=== PATIENT | male | born 1990 | race African-American/Black ===

== ENCOUNTER 2019-03-24 13:42 | Emergency (ER) | payer OTHER ==
[2019-03-24] MEDS ORDERED: KETOROLAC 30 MG/ML INJ ONE (14:14)
--- NOTE | 2019-03-24 14:33 | RAD REPORT ---
EXAM DESCRIPTION: RAD - Ankle Left 3 View - 03/24/2019 2:26 pm CLINICAL HISTORY: PAIN COMPARISON: No comparisons FINDINGS: No acute fracture or dislocation seen.
--- NOTE | 2019-03-24 14:40 | RAD REPORT ---
EXAM DESCRIPTION: CT - Spine Lumbar Wo Con - 03/24/2019 2:33 pm CLINICAL HISTORY: Radiculopathy. LOWER BACK PAIN COMPARISON: No comparisons TECHNIQUE: Axial noncontrast CT imaging of the lumbar spine was performed with coronal and sagittal re-formatted images. All CT scans are performed using dose optimization technique as appropriate and may include automated exposure control or mA/KV adjustment according to patient size. FINDINGS: No acute lumbar spine fracture seen. No aggressive marrow pattern or malalignment. Paraspinal tissues are normal in thickness. No paraspinal abscess or hematoma seen. Intervertebral disc disease assessment is inherently limited by CT. Within these limitations, no high -grade canal stenosis suspected. Mild posterior disc bulge is seen lower lumbar levels. IMPRESSION: No acute lumbar spine abnormality detected. Consider MRI follow-up for assessment of disc disease if clinically desired.
[2019-03-24] MEDS ORDERED: CYCLOBENZAPRINE 10 MG TAB ONE (14:53)
[2019-03-24] MEDS ORDERED: HYDROCODONE/APAP 5/325 MG TAB ONE (14:53)
--- NOTE | 2019-03-24 15:42 | EDPHYS ---
Physician Documentation [facility] Name: Margo Currie Age: 28 yrs Sex: Male : 1990 Arrival Date: 03/24/2019 Time: 13:44 Bed 17 Private MD: ED Physician Mil Hernandes HPI: 03/24 15:38 This 28 yrs old Black Male presents to ER via Wheelchair with complaints of Ankle kb Injury, Low Back Pain. 15:39 The patient presents with pain that is acute, and tenderness. The symptoms are located kb in the low back. Onset: The symptoms/episode began/occurred just prior to arrival. The pain does not radiate. Associated signs and symptoms: The patient has no apparent associated signs or symptoms. The problem was sustained from twisting. Modifying factors: The patient symptoms are alleviated by nothing, the patient symptoms are aggravated by any movement. Severity of symptoms: At their worst the symptoms were moderate, in the emergency department the symptoms are unchanged. The patient has not experienced similar symptoms in the past. The patient has not recently seen a physician. Pt was carrying a ladder and a dog ran up behind him so he was startled and twisted his left ankle, causing the ladder to tilt to the right. Pt twisted so the ladder would fall to the left instead and felt a pop in low back.. Historical: - Allergies: 13:48 No Known Allergies; la1 - PMHx: 13:48 None; la1 - Immunization history:: Adult Immunizations up to date. - Social history:: Smoking status: Patient/guardian denies using tobacco. - Ebola Screening: : No symptoms or risks identified at this time. ROS: 15:37 Constitutional: Negative for fever, chills, and weight loss, ENT: Negative for injury, kb pain, and discharge, Neck: Negative for injury, pain, and swelling, Cardiovascular: Negative for chest pain, palpitations, and edema, Respiratory: Negative for shortness of breath, cough, wheezing, and pleuritic chest pain, Abdomen/GI: Negative for abdominal pain, nausea, vomiting, diarrhea, and constipation, : Negative for injury, bleeding, discharge, and swelling, Skin: Negative for injury, rash, and discoloration, Neuro: Negative for headache, weakness, numbness, tingling, and seizure. 15:37 Back: Positive for pain at rest, pain with movement. 15:37 MS/extremity: Positive for injury or acute deformity, pain, tenderness, of the left ankle. Exam: 15:36 Constitutional: This is a well developed, well nourished patient who is awake, alert, kb and in no acute distress. Head/Face: Normocephalic, atraumatic. ENT: Nares patent. No nasal discharge, no septal abnormalities noted. Tympanic membranes are normal and external auditory canals are clear. Oropharynx with no redness, swelling, or masses, exudates, or evidence of obstruction, uvula midline. Mucous membranes moist. Neck: Trachea midline, no thyromegaly or masses palpated, and no cervical lymphadenopathy. Supple, full range of motion without nuchal rigidity, or vertebral point tenderness. No Meningismus. Chest/axilla: Normal chest wall appearance and motion. Nontender with no deformity. No lesions are appreciated. Cardiovascular: Regular rate and rhythm with a normal S1 and S2. No gallops, murmurs, or rubs. Normal PMI, no JVD. No pulse deficits. Respiratory: Lungs have equal breath sounds bilaterally, clear to auscultation and percussion. No rales, rhonchi or wheezes noted. No increased work of breathing, no retractions or nasal flaring. Abdomen/GI: Soft, non-tender, with normal bowel sounds. No distension or tympany. No guarding or rebound. No evidence of tenderness throughout. Skin: Warm, dry with normal turgor. Normal color with no rashes, no lesions, and no evidence of cellulitis. Neuro: Awake and alert, GCS 15, oriented to person, place, time, and situation. Cranial nerves II-XII grossly intact. Motor strength 5/5 in all extremities. Sensory grossly intact. Cerebellar exam normal. Normal gait. 15:36 Back: pain, that is moderate, of the low back area, ROM is painful, with all movement, normal spinal alignment noted. 15:37 Musculoskeletal/extremity: Extremities: grossly normal except: noted in the left ankle: kb pain, swelling, tenderness, ROM: intact in all extremities, Circulation is intact in all extremities. Sensation intact. Weight bearing: can bear weight with assistance only. Vital Signs: 13:48 BP 149 / 112; Pulse 93; Resp 16; Temp 97.4; Pulse Ox 100% on R/A; Weight 79.38 kg; la1 Height 6 ft. 1 in. (185.42 cm); 14:35 BP 134 / 95; Pulse 81; Resp 18; Pulse Ox 99% on R/A; Pain 10/10; em 13:48 Body Mass Index 23.09 (79.38 kg, 185.42 cm) la1 MDM: 13:58 Patient medically screened. kb 15:36 Data reviewed: vital signs, nurses notes. Data interpreted: Pulse oximetry: on room air kb is 99 %. Interpretation: normal. Counseling: I had a detailed discussion with the patient and/or guardian regarding: the historical points, exam findings, and any diagnostic results supporting the discharge/admit diagnosis, radiology results, the need for outpatient follow up, a family practitioner, to return to the emergency department if symptoms worsen or persist or if there are any questions or concerns that arise at home. 03/24 14:06 Order name: Ankle Left 3 View XRAY; Complete Time: 14:36 kb 03/24 14:06 Order name: CT Lumbar Spine Wo Con; Complete Time: 15:02 kb Administered Medications: 14:15 Drug: TORadol 30 mg Route: IM; Site: right deltoid; em 14:35 Follow up: Response: No adverse reaction; Pain is unchanged, physician notified em 14:57 Drug: Flexeril 10 mg Route: PO; em 16:26 Follow up: Response: No adverse reaction; Pain is decreased em 14:57 Drug: [place] 5 mg-325 mg 1 tabs Route: PO; em 16:26 Follow up: Response: No adverse reaction; Pain is decreased; RASS: Alert and Calm (0) em Disposition: 03/25 07:12 Co-signature as Attending Physician, Mil Hernandes MD. ma2 Disposition: 03/24/19 15:41 Discharged to Home. Impression: Sprain of ankle, Low back pain. - Condition is Stable. - Discharge Instructions: Ankle Sprain, [id number], Back Injury Prevention, [id number], Back Pain, Adult, [id number], Back Exercises, [id number]. - Prescriptions for Cyclobenzaprine 10 mg Oral Tablet - take 1 tablet by ORAL route every 8 hours As needed; 21 tablet. Diclofenac Sodium 75 mg Oral Tablet, Delayed Release (E.C.) - take 1 tablet by ORAL route 2 times per day As needed; 30 tablet. - Work release form, Medication Reconciliation Form, Thank You Letter, Antibiotic Education, Prescription Opioid Use form. - Follow up: Emergency Department; When: As needed; Reason: Worsening of condition. Follow up: Private Physician; When: 2 - 3 days; Reason: Recheck today's complaints, Continuance of care, Re-evaluation by your physician. Signatures: Dispatcher [employer] EDNeelam Craig, ABRAHAM-C EMERGENCY DEPARTMENT AIDE-Franki Bahena, SUPERVISOR ROLLER SHOP SUPERVISOR ROLLER SHOP em Marquis Charlton RN RN la1 Mil Hernandes MD MD ma2 Corrections: (The following items were deleted from the chart) 03/24 16:27 15:41 03/24/2019 15:41 Discharged to Home. Impression: Sprain of ankle; Low back pain. em Condition is Stable. Forms are Medication Reconciliation Form, Thank You Letter, Antibiotic Education, Prescription Opioid Use. Follow up: Emergency Department; When: As needed; Reason: Worsening of condition. Follow up: Private Physician; When: 2 - 3 days; Reason: Recheck today's complaints, Continuance of care, Re-evaluation by your physician. kb
--- NOTE | 2019-03-24 15:42 | ER ---
Nurse's Notes [facility] Name: Margo Currie Age: 28 yrs Sex: Male : 1990 Arrival Date: 03/24/2019 Time: 13:44 Bed 17 Private MD: Diagnosis: Sprain of ankle;Low back pain Presentation: 03/24 13:47 Presenting complaint: Patient states: I was carrying a ladder and got startled and lost la1 my footing, I rolled my left ankle then felt something go in my lower back and had to drop the ladder\E\. Transition of care: patient was not received from another setting of care. Onset of symptoms was March 24, 2019. Risk Assessment: Do you want to hurt yourself or someone else? Patient reports no desire to harm self or others. Initial Sepsis Screen: Does the patient meet any 2 criteria? No. Patient's initial sepsis screen is negative. Does the patient have a suspected source of infection? No. Patient's initial sepsis screen is negative. Care prior to arrival: None. 13:47 Method Of Arrival: Wheelchair la1 13:47 Acuity: GEETHA 4 la1 Historical: - Allergies: 13:48 No Known Allergies; la1 - PMHx: 13:48 None; la1 - Immunization history:: Adult Immunizations up to date. - Social history:: Smoking status: Patient/guardian denies using tobacco. - Ebola Screening: : No symptoms or risks identified at this time. Screenin:15 Abuse screen: Denies threats or abuse. Nutritional screening: No deficits noted. em Tuberculosis screening: No symptoms or risk factors identified. Fall Risk None identified. Assessment: 14:10 General: Appears in no apparent distress. uncomfortable, Behavior is calm, cooperative. em Pain: Complains of pain in lumbar area and left lateral malleolus Pain currently is 10 out of 10 on a pain scale. Pain began 2 hours ago. Neuro: Level of Consciousness is awake, alert, obeys commands, Oriented to person, place, time, situation, Appropriate for age Denies paresthesias numbness. Cardiovascular: Capillary refill < 3 seconds Patient's skin is warm and dry. Respiratory: Airway is patent Respiratory effort is even, unlabored, Respiratory pattern is regular, symmetrical. Derm: Skin is intact, is healthy with good turgor, Skin is pink, warm \T\ dry. Musculoskeletal: Capillary refill < 3 seconds, Range of motion: limited in left ankle. 14:10 Reassessment: I agree with assessment completed by Franki Ma LVN . aa5 14:35 Reassessment: Patient appears in no apparent distress at this time. Patient and/or em family updated on plan of care and expected duration. Pain level reassessed. Patient is alert, oriented x 3, equal unlabored respirations, skin warm/dry/pink. reports pain medication did not help, provider notified, new medication orders received. 15:30 Reassessment: Patient appears in no apparent distress at this time. Patient and/or em family updated on plan of care and expected duration. Pain level reassessed. Patient is alert, oriented x 3, equal unlabored respirations, skin warm/dry/pink. 16:27 Reassessment: Patient appears in no apparent distress at this time. Patient and/or em family updated on plan of care and expected duration. Pain level reassessed. Patient is alert, oriented x 3, equal unlabored respirations, skin warm/dry/pink. rates pain 7/10 Patient states feeling better. Vital Signs: 13:48 BP 149 / 112; Pulse 93; Resp 16; Temp 97.4; Pulse Ox 100% on R/A; Weight 79.38 kg; la1 Height 6 ft. 1 in. (185.42 cm); 14:35 BP 134 / 95; Pulse 81; Resp 18; Pulse Ox 99% on R/A; Pain 10/10; em 13:48 Body Mass Index 23.09 (79.38 kg, 185.42 cm) la1 ED Course: 13:44 Patient arrived in ED. as 13:48 Triage completed. la1 13:48 Arm band placed on left wrist. la1 13:58 Neelam Oseguera FNP-C is [facility]. kb 13:58 Mil Hernandes MD is Attending Physician. kb 14:09 Franki Ma LVN is Primary Nurse. em 14:15 Patient has correct armband on for positive identification. Bed in low position. Call em light in reach. Side rails up X2. Pulse ox on. NIBP on. 14:26 Ankle Left 3 View XRAY In Process Unspecified. EDMS 14:34 CT Lumbar Spine Wo Con In Process Unspecified. EDMS 16:25 No provider procedures requiring assistance completed. Patient did not have IV access em during this emergency room visit. Administered Medications: 14:15 Drug: TORadol 30 mg Route: IM; Site: right deltoid; em 14:35 Follow up: Response: No adverse reaction; Pain is unchanged, physician notified em 14:57 Drug: Flexeril 10 mg Route: PO; em 16:26 Follow up: Response: No adverse reaction; Pain is decreased em 14:57 Drug: [place] 5 mg-325 mg 1 tabs Route: PO; em 16:26 Follow up: Response: No adverse reaction; Pain is decreased; RASS: Alert and Calm (0) em Outcome: 15:41 Discharge ordered by MD. kb 16:25 Discharged to home via wheelchair. em 16:25 Condition: good 16:25 Discharge instructions given to patient, Instructed on discharge instructions, follow up and referral plans. medication usage, Demonstrated understanding of instructions, follow-up care, medications, Prescriptions given X 2. 16:27 Patient left the ED. em Signatures: Dispatcher [employer] EDMS Neelam Oseguera, PIPELINE INSPECTOR-C PIPELINE INSPECTOR-Ckb Franki Ma, HOUSEHOLD COORDINATOR HOUSEHOLD COORDINATOR em Tonia Walls Audri, RN RN aa5 Marquis Charlton, RN RN la1
[2019-03-24 16:37] VITALS: TEMP 97.4
[2019-03-24 16:38] VITALS: BP 134/95; O2SAT 99
== END 2019-03-24 16:27 | disposition home or self-care (01) ==
LOC: ER 13:42
DX: S93.402A Sprain of unspecified ligament of left ankle, initial encounter (principal); M54.5 Low back pain; X50.1XXA Overexertion from prolonged static or awkward postures, initial encounter; Y93.89 Activity, other specified; Y92.9 Unspecified place or not applicable
CPT/HCPCS: 72131; 96372; 99284